=== PATIENT | female | born 1985 | race Caucasian/White ===

== ENCOUNTER 2023-06-09 10:06 | Outpatient (REF) | payer MEDICARE, SELFPAY ==
--- NOTE | 2023-06-09 09:50 | SKI_PTH ---
PATIENT: Paula Cuevas LOC: [facility] U#:[id number] AGE/SX: 37/F ROOM: RE06/09/[address]: JACLYN Zhong : 1985 BED: DIS: 06/09/2023 SPEC #: [id number] RECD: 06/09/23 16:59 STATUS: ROCKY REYang #: [id number] EMMANUELLE: 06/09/23 09:[address]: Yordan Hernandez DEPT: Surgical Specimen RECD BY: Fanny Pedro ENTERED: 06/09/23 17:00 SP TYPE: NADJA ALAMO DR: Jude Swanson MD Tissues: 1 - SKIN BIOPSY(SHAVE/PUNCH) Procedures: IMMUNOPEROXIDASE STAIN SKIN LEVEL 4 Comments: [id number]
== END 2023-06-09 10:07 | disposition home or self-care (01) ==
LOC: LBN 10:06
PROVIDERS: PCP Family Medicine; Visit Provider Physician Assistant
DX: D22.61 Melanocytic nevi of right upper limb, including shoulder (principal)
CPT/HCPCS: 88305; 88361